=== PATIENT | female | born 1975 | race Caucasian/White ===

== ENCOUNTER 2023-02-04 11:17 | Emergency (ER) | payer OTHER, SELFPAY ==
[2023-02-04 11:28] VITALS: BP 151/99; PULSE 97; RESP 18; TEMP 36.6; O2SAT 99
--- NOTE | 2023-02-04 11:32 | ED.URI ---
HPI - URI/Sore Throat General Chief Complaint: Upper Respiratory Infection Stated Complaint: sorethroat,bodyaches Source: patient and RN notes reviewed History of Present Illness HPI Narrative: 47 yo F presents to urgent care with complaints of a scratchy throat that started Saturday. Pt states yesterday she began running a fever, having chills, and body aches. Today just has the scratchy throat and a little achy. Pt is also reporting a tender, itchy, red, rash were she was stung by a bee this weekend. States she took a leftover doxycycline pill and immediately vomited. Pt has not vomited since. Denies any congestion, ear pain, chest pain, SOB, or abdominal pain. Pt states her mother tested + for strep and covid this past weekend. Related Data Home Medications Medication Instructions Recorded Confirmed Saccharomyces boulardii 250 mg 5,000 mmu cells PO DAILY 03/26/22 02/04/23 capsule (Daily Probiotic (S. boulardii)) mecobalamin (vitamin B12) 1,000 1,000 mcg PO DAILY 03/26/22 02/04/23 mcg chewable tablet multivitamin 1 tablet PO DAILY 03/26/22 02/04/23 norgestimate-ethinyl estradiol 1 tablet PO DAILY 03/26/22 02/04/23 0.18 mg/0.215mg/0.25mg-35 mcg(28)tablet (Ortho Tri-Cyclen (28)) Allergies Allergy/AdvReac Type Severity Reaction Status Date / Time shellfish derived AdvReac Severe Vomiting Verified 02/04/23 11:33 Review of Systems Review of Systems: Pertinent positives and pertinent negatives per HPI. [facility] Past Medical History Medical History (Updated 02/04/23 @ 11:42 by Dawna Padilla, SCOTT) History of IBS Family History Family History (Updated 03/26/22 @ 15:50 by Missy Loaiza) Father Family history of premature coronary heart disease, Onset Age: 40 Mother Hypertension Family history of elevated blood lipids Grandparent Diabetes mellitus Social History Social History (Updated 03/26/22 @ 15:49 by Missy Loaiza) Smoking status: Never smoker Alcohol intake: never Substance use: never Substance use type: does not use Living arrangements: with family Occupation/Education: occupation Gender identity (if verbalized by the patient): Female Comments At the time of my signature, I reviewed and agree with the nursing past medical, surgical, social, and family history. There is no relevant family history pertinent to the patient complaint. Exam Narrative: GENERAL: This is a well-nourished, well-developed patient, in no apparent distress. HEAD: normocephalic, atraumatic. EYES: Sclera clear/white. Vision is grossly intact. EARS: External ears normal, auditory canals clear and without drainage, TMs normal without perforation. Hearing grossly intact. NOSE: External nose normal with no obvious nasal discharge, nares without redness, no rhinorrhea. THROAT: Mucous membranes moist, posterior pharynx clear. NECK: Neck supple, non-tender without lymphadenopathy, masses or thyromegaly. CARDIOVASCULAR: Regular rate and rhythm without murmurs, gallops, or rubs. RESPIRATORY: Clear to auscultation. Breath sounds equal bilaterally. No wheezes, rales, or rhonchi. SKIN: warm, erythremic, slightly indurated, area to right upper, inner thigh, measuring approximately 4 cm x 3 cm, no drainage or fluctuance noted. NEURO: awake, alert, and oriented to person, place and time. There were no obvious focal neurologic abnormalities. BACK: Nontender without deformity or crepitus. No flank tenderness. Course Course Level of Care: Express Care Visit Vital Signs Vital signs: Vital Signs Temperature 97.9 F 02/04/23 11:28 Pulse Rate 97 02/04/23 11:28 Respiratory Rate 18 02/04/23 11:28 Blood Pressure 151/99 H 02/04/23 11:28 Pulse Oximetry 99 02/04/23 11:28 Oxygen Delivery Room Air 02/04/23 11:28 Temperature 97.9 F 02/04/23 11:28 Pulse Rate 97 02/04/23 11:28 Respiratory Rate 18 02/04/23 11:28 Blood Pressure 151/99 H 02/04/23 11:28 Pulse
== END 2023-02-04 11:45 | disposition home or self-care (01) ==
PROVIDERS: Emergency Provider Nurse Practitioner Family; PCP Family Medicine
DX: J02.9 Acute pharyngitis, unspecified (principal); L03.115 Cellulitis of right lower limb; B34.9 Viral infection, unspecified
CPT/HCPCS: 99213; G0463

== ENCOUNTER 2023-07-11 15:45 | Outpatient (RCR) | payer OTHER, SELFPAY ==
--- NOTE | 2023-05-17 16:16 | OPREHPOC ---
Outpatient Therapy Plan of Care This is a Multidisciplinary Plan of Care that may contain components documented by all disciplines (PT, OT, and ST.) PT Goal 1 Goal Pt will be independent in HEP Pt will verbalize understanding of diagnosis and prognosis Target Visit 8 PT Problem 2 PT Problem #2 Impaired Strength PT Goal 1 Goal Pt will demo strength of 4/5 BLE in all tested planes Target Visit 8 PT Goal 2 Goal Pt will demo core strength of 3+/5 of the TRAM to improve lumbopelvic stability Target Visit 16 PT Problem 3 PT Problem #3 Pain PT Goal 1 Goal Pt will report greatest pain level at 3/10 or less to improve ADLs and activities Pt will report resolution of pain to return to PLOF Target Visit 8 PT Goal 2 Goal Pt will report resolution of pain to return to PLOF Target Visit 16
--- NOTE | 2023-05-17 16:16 | PTOPEVAL1 ---
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 Most recent imaging shows changes above and below fusion. Fusion ~2009 @ L4-5. Imaging last year shows changes within the fusion. Weather changes and standing continuously flares up back Pain is variable, sometimes will be great and other days after standing and getting ready will have greatly increased back pain. Has exercises laying on bed bringing single knee to chest and this helps. Bathroom counter is shorter than previous housing situation but will also have issue also takes Tramadol at times. Long road trips require heat and medication Reported Pain Level Pain Score 0: Self Report Assessment PT Clinical Summary Pt presents to therapy for evaluation of low back pain. Pt shows multiple areas of weakness in lumbopelvic area, decreased lumbar ROM, pelvic alignment abnormality, and multiple areas of muscle tone and tenderness. Pt will benefit from therapy in order to address deficits and improve function with less pain. Plan of Care Interventions Electrical Stimulation,Manual Therapy,Neuro Re- education,Patient/Caregiver Educati,Therapeutic Activities,Therapeutic Exercise,Self-Care/Home Management PT Services Indicated Yes Treatment Frequency and 1-2x weekly x 8 weeks Duration These treatments will address the objective and functional deficits as defined above. The patient will be advanced safely and appropriately in order for the patient to progress towards his/her prior level of function. Additional exercises will be introduced and as well as a comprehensive home exercise program upon discharge, if needed, ?to ensure carryover of functional gains achieved in the clinic. This treatment plan has been reviewed and agreement upon by the patient.
--- NOTE | 2023-06-28 15:30 | PCPTNOTE ---
Department cancelled pt appointment on 06/27/23 due to staffing shortage. Pt POC miguel angel resume upon next visit.
--- NOTE | 2023-07-12 16:12 | PTOPDC ---
Assessment and note entered by Jackie Morejon, PT Assessment Status Discharge Diagnosis low back pain unspecified Subjective Information Reports pain is more on the right today than previously Pt reports today even with her brace had to lay down after getting ready this morning Taking Tramadol as usual Some days feels like therapy is helping. Sacroilliac joint belt really helps but never knows what kind of day she is going to have. States getting up and down is troublesome. Pt reports feels about the same as prior to therapy. Reported Pain Level Pain Score 6: Self Report Assessment PT Clinical Summary Pt has attended therapy consistently for low back pain. She has made some small improvements in her strength, however she has not made progress in her reports of pain. She feels about the same as she did prior to therapy, cont to have to take Tramadol on the occasion and only significant relief she feels with with sacroilliac stabilization belt. Also significant tenderness to right sacroilliac joint today. As patient has not made significant progress in her presentation, not has she made significant progress in subjective reports she is being referred back to her referring provider for other testing. Thus she is being discharged from therapy plan of care. Plan of Care PT Services Indicated No
== END 2023-07-15 10:20 | disposition home or self-care (01) ==
LOC: ANHHIPT 15:45
PROVIDERS: PCP Family Medicine; Visit Provider Family Medicine
DX: M54.50 Low back pain, unspecified (principal)
CPT/HCPCS: 97014; 97110; 97112; 97140; 97162; 97750; G0283

== ENCOUNTER 2023-11-19 07:50 | Emergency (ER) | payer OTHER, SELFPAY ==
[2023-11-19 07:53] VITALS: BP 155/108; PULSE 109; RESP 20; TEMP 36.2; O2SAT 98
[2023-11-19 09:22] VITALS: BP 151/92; PULSE 96; RESP 18; TEMP 37.2; O2SAT 98
[2023-11-19 09:23] VITALS: O2SAT 97
[2023-11-19 10:14] LABS: Influenza A QL RT-PCR Negative (Negative); Influenza B QL RT-PCR Negative (Negative); RSV RNA, RT-PCR Negative (Negative); SARS-CoV-2 RNA PCR Negative (Negative)
--- NOTE | 2023-11-19 10:21 | ED.URI ---
HPI - URI/Sore Throat General Chief Complaint: Upper Respiratory Infection Stated Complaint: URI symptoms Time Seen by Provider: 11/19/23 08:52 History of Present Illness HPI Narrative: 48-year-old female presents to the emergency room for evaluation URI symptoms of been present for 3 days. States she is taking multiple [id number] medications with minimal resolution of her symptoms. Patient reports body aches, nasal congestion, productive cough, postnasal drip, rhinorrhea, subjective fever. States symptoms are worse in the morning and when supine Related Data Home Medications Medication Instructions Recorded Confirmed Saccharomyces boulardii 250 mg 5,000 mmu cells PO DAILY 03/26/22 07/19/23 capsule (Daily Probiotic (S. boulardii)) mecobalamin (vitamin B12) 1,000 1,000 mcg PO DAILY 03/26/22 07/19/23 mcg chewable tablet multivitamin 1 tablet PO DAILY 03/26/22 07/19/23 Allergies Allergy/AdvReac Type Severity Reaction Status Date / Time shellfish derived AdvReac Severe Vomiting Verified 07/19/23 08:14 Review of Systems Review of Systems: review of systems unremarkable except for noted in HPI PMFSH Past Medical History Medical History History of IBS Weight loss Family History Family History Father Family history of premature coronary heart disease, Onset Age: 40 Mother Hypertension Family history of elevated blood lipids Grandparent Diabetes mellitus Social History Social History Smoking status: Never smoker Alcohol intake: never Substance use: never Substance use type: does not use Living arrangements: with family Occupation/Education: occupation Gender identity (if verbalized by the patient): Female Exam Narrative: GENERAL: acutely ill-appearing, well-nourished, no physical limitations, and in no acute distress. HEAD: Normocephalic, atraumatic. EYES: Conjunctivae normal, PERRLA and EOMI. ENT: External nose normal, clear rhinorrhea. Mucous membranes moist. Oropharynx without tonsillar hypertrophy exudate or other lesions. External ears normal, bilateral TMs normal bilaterally NECK: Supple. No adenopathy or masses. CHEST: Clear to auscultation. No respiratory distress. No wheezes rales or rhonchi. HEART: Regular rate and rhythm. No murmur heard. Normal peripheral pulses. EXTREMITIES: Normal range of motion. No edema. No clubbing or cyanosis SKIN: Warm, dry, no rash. No noted wounds NEURO: No focal deficits. Alert and oriented x3. MAEW. CN's II-XI intact bilaterally, normal gait PSYCH: Cooperative. Normal mood and affect. Course Vital Signs Vital signs: Vital Signs Temperature 36.2 C L 11/19/23 07:53 Pulse Rate 109 H 11/19/23 07:53 Respiratory Rate 20 11/19/23 07:53 Blood Pressure 155/108 H 11/19/23 07:53 Pulse Oximetry 98 11/19/23 07:53 Oxygen Delivery Room Air 11/19/23 07:53 Temperature 37.2 C 11/19/23 09:22 Pulse Rate 96 11/19/23 09:22 Respiratory Rate 18 11/19/23 09:22 Blood Pressure 151/92 H 11/19/23 09:22 Pulse Oximetry 97 11/19/23 09:23 Oxygen Delivery Room Air 11/19/23 09:23 MDM - URI/Sore Throat Lab Data Labs: Lab Results 11/19/23 Range/Units 09:16 Influenza A (RT-PCR) Negative (Negative) Influenza B (RT-PCR) Negative (Negative) RSV (RT-PCR) Negative (Negative) SARS-CoV-2 RNA (RT-PCR) Negative (Negative) Discharge Plan Discharge Clinical Impression: Upper respiratory infection Patient Disposition: Home, Self-Care Condition: Stable Instructions: Antibiotic Form, Viral Syndrome (ED), Cold Symptoms (ED) Prescriptions: New promethazine-DM 6.25-15 mg/5 mL syrup 5 ml PO Q4-6H PRN (Reason: cough) Qty: 118 0RF pseudoephedrine HCl 30 mg tablet 30 mg PO Q4-6H PRN (Ivy
[2023-11-19 10:47] VITALS: BP 155/90; PULSE 94; RESP 18; TEMP 37.2; O2SAT 98
== END 2023-11-19 10:49 | disposition home or self-care (01) ==
PROVIDERS: Emergency Provider Nurse Practitioner Family; PCP Family Medicine
DX: J06.9 Acute upper respiratory infection, unspecified (principal); Z20.822 Contact with and (suspected) exposure to COVID-19; K58.9 Irritable bowel syndrome, unspecified; Z79.899 Other long term (current) drug therapy; Z79.3 Long term (current) use of hormonal contraceptives
CPT/HCPCS: 87637; 99283